=== PATIENT | female | born 1955 | race Caucasian/White ===

== ENCOUNTER 2018-08-07 06:50 | Day surgery (SDC) | payer OTHER ==
[~2018-08-07 06:50] MED LIST: CEFAZOLIN 2 GM/50 ML (PMX) 50 ML IVPB
[2018-08-07] MEDS: SOD CHLORIDE 0.9% 1,000 ML IV (09:26)
[2018-08-07] MEDS ORDERED: ISOSULFAN BLUE 1% 5 ML INJ SC (09:36)
[2018-08-07] MEDS ORDERED: MIDAZOLAM 1 MG/ML 2 ML INJ (10:06)
[2018-08-07] MEDS ORDERED: METOCLOPRAMIDE 10 MG INJ (10:12)
[2018-08-07] MEDS ORDERED: PROPOFOL 20 ML (10:12)
[2018-08-07] MEDS ORDERED: FENTAnyl 50 MCG/ML VIAL ×2 (10:12→10:20)
[2018-08-07] MEDS ORDERED: ONDANSETRON 4 MG INJ (10:12)
[2018-08-07] MEDS ORDERED: CEFAZOLIN 1 GM INJ (10:24)
[2018-08-07] MEDS ORDERED: HYDROmorphONE 2 MG/ML SYG (10:25)
[2018-08-07] MEDS ORDERED: hydrALAzine 20 MG INJ IV (10:30)
[2018-08-07] MEDS ORDERED: ONDANSETRON 4 MG INJ IV (10:30)
[2018-08-07] MEDS ORDERED: MEPERIDINE 25 MG INJ IV (10:30)
[2018-08-07] MEDS ORDERED: FENTAnyl 50 MCG/ML VIAL IV ×3 (10:30)
[2018-08-07] MEDS ORDERED: OXYCODONE/ACETAMINOPHEN (5/325) TAB PO (10:30)
[2018-08-07] MEDS ORDERED: LABETALOL HCL 20MG INJ IV (10:30)
[2018-08-07] MEDS ORDERED: DIPHENHYDRAMINE 50 MG INJ IV (10:30)
[2018-08-07] MEDS ORDERED: HYDROmorphONE 1 MG/5 ML IV SYRINGE IV ×3 (10:30)
[2018-08-07] MEDS ORDERED: HYDROCODONE/APAP (7.5/325) TAB PO (11:30)
[2018-08-07] MEDS ORDERED: EPHEDrine 25 MG/5 ML SYG (12:09)
[2018-08-07] MEDS: OXYCODONE/ACETAMINOPHEN (5/325) TAB PO (13:17)
== END 2018-08-07 14:13 | disposition home or self-care (01) ==
LOC: SDS 06:50
DX: D05.12 Intraductal carcinoma in situ of left breast (principal); N60.12 Diffuse cystic mastopathy of left breast; J45.909 Unspecified asthma, uncomplicated
CPT/HCPCS: 19120; 88307